=== PATIENT | female | born 1990 ===

== ENCOUNTER 2021-06-12 08:04 | Inpatient (IN) | payer OTHER ==
[~2021-06-12] VITALS: Ht 157.5 cm; Wt 138.1 kg
[2021-06-12 08:34] LABS: BASOPHILS PERCENT AUTO 0 % (0-2); EOSINOPHILS PERCENT AUTO 0 % (0-6); Hematocrit 27.7 % (33.0-51.0); Hemoglobin 8.3 g/dL (11.5-16.0); IMMATURE GRAN ABSOLUTE AUTO 0.02 K/mm3 (0.00-0.10); IMMATURE GRAN PERCENT AUTO 0 % (0-1); LYMPHOCYTES ABSOLUTE AUTO 0.45 K/mm3 (0.84-5.20); LYMPHOCYTES PERCENT AUTO 9 % (21-46); MONOCYTES ABSOLUTE AUTO 0.11 K/mm3 (0.16-1.47); MONOCYTES PERCENT AUTO 2 % (4-13); Mean Corpuscular HGB 21.3 pg (26.0-34.0); Mean Corpuscular Volume 71 fL (80-100); Mean Platelet Volume 9.3 fL (9.1-12.4); NEUTROPHILS ABSOLUTE AUTO 4.48 K/mm3 (1.96-9.15); NEUTROPHILS PERCENT AUTO 89 % (41-73); Platelet Count 220 K/mm3 (150-400); RDW Coefficient Variation 17.9 % (11.7-14.2); RDW Standard Deviation 46.5 fL (35.1-46.3); Red Blood Cell Count 3.89 M/mm3 (3.80-5.20); White Blood Cell Count 5.06 K/mm3 (4.00-11.30)
[2021-06-12 08:49] LABS: Alanine Aminotransfer (ALT/SGP 51 U/L (12-78); Albumin, Blood 2.8 g/dL (3.4-5.0); Albumin/Globulin Ratio 0.7 (0.8-1.8); Alk Phos 97 U/L (50-136); Anion Gap 7 mmol/L (6-16); Aspartate Aminotrans (AST/SGOT 69 U/L (12-37); Bilirubin, Total 0.3 mg/dL (0.1-1.0); Blood Urea Nitrogen 10 mg/dL (8-24); Bun/Creatinine Ratio 16.6 (12.0-20.0); CO2, Blood 27 mmol/L (21-32); Calcium, Blood 7.7 mg/dL (8.5-10.1); Chloride, Blood 105 mmol/L (98-108); Globulin, Blood 4.2 g/dL (2.2-4.0); Glomerular Filtration Rate >60 (60-); Glucose, Blood 128 mg/dL (70-99); Potassium, Blood 4.3 mmol/L (3.5-5.5); Sodium, Blood 139 mmol/L (136-145)
--- NOTE | 2021-06-12 16:20 | NUR ---
SHIFT SUMMARY ED ADMIT THIS AFTERNOON. PATIENT SETTLED INTO ROOM. DENIES PAIN AND NAUSEA. DYSPNEA WITH EXERTION. MAINTAINING OXYGEN SATURATION ABOVE 92% ON 2L/NC. UP INDEPENDENT IN ROOM. EATING AND DRINKING WELL. PLEASANT AND COOPERATIVE WITH CARE.
--- NOTE | 2021-06-13 04:09 | NUR ---
SHIFT SUMMARY PT IS A&O X4, ABLE TO INDEPENDENTLY AMBULATE TO THE BATHROOM. MAINTAINING SATS ABOVE 94% ON 3.5 LPM OXYGEN VIA NC. LUNG SOUNDS ARE DIMINISHED. PT WITH COUGH THAT IS PRODUCTIVE OF SCANT AMOUNT OF THICK, CLEAR MUCUS. ONCE NOTED WITH DRIED BLOOD. 20 GAUGE IV IN LEFT HAND. PT TEMP 100.3 - 101.6, TREATED WITH TYLENOL PRN, ICE PACKS TO ARM PITS, REMOVED BLANKETS, FAN IN ROOM. ENCOURAGED ADEQUATE HYDRATION. PT WILL CALL APPROPRIATELY, CALL LIGHT WITHIN REACH.
[2021-06-13 05:32] LABS: BASOPHILS PERCENT AUTO 0 % (0-2); EOSINOPHILS PERCENT AUTO 0 % (0-6); Hemoglobin 8.3 g/dL (11.5-16.0); Mean Corpuscular HGB 21.4 pg (26.0-34.0); Mean Corpuscular HGB Conc 29.6 g/dL (31.5-36.5); Mean Corpuscular Volume 72 fL (80-100); Mean Platelet Volume 9.4 fL (9.1-12.4); Platelet Count 262 K/mm3 (150-400); RDW Coefficient Variation 17.7 % (11.7-14.2); Red Blood Cell Count 3.88 M/mm3 (3.80-5.20); White Blood Cell Count 6.33 K/mm3 (4.00-11.30)
[2021-06-13 05:52] LABS: IMMATURE GRAN ABSOLUTE AUTO 0.04 K/mm3 (0.00-0.10); IMMATURE GRAN PERCENT AUTO 1 % (0-1); LYMPHOCYTES ABSOLUTE AUTO 0.73 K/mm3 (0.84-5.20); LYMPHOCYTES PERCENT AUTO 12 % (21-46); MONOCYTES ABSOLUTE AUTO 0.28 K/mm3 (0.16-1.47); MONOCYTES PERCENT AUTO 4 % (4-13); NEUTROPHILS ABSOLUTE AUTO 5.28 K/mm3 (1.96-9.15); NEUTROPHILS PERCENT AUTO 84 % (41-73)
[2021-06-13 06:01] LABS: Alanine Aminotransfer (ALT/SGP 46 U/L (12-78); Albumin, Blood 2.7 g/dL (3.4-5.0); Albumin/Globulin Ratio 0.6 (0.8-1.8); Alk Phos 93 U/L (50-136); Anion Gap 5 mmol/L (6-16); Aspartate Aminotrans (AST/SGOT 59 U/L (12-37); Bilirubin, Total 0.3 mg/dL (0.1-1.0); Blood Urea Nitrogen 12 mg/dL (8-24); Bun/Creatinine Ratio 23.5 (12.0-20.0); CO2, Blood 27 mmol/L (21-32); Calcium, Blood 8.2 mg/dL (8.5-10.1); Chloride, Blood 107 mmol/L (98-108); Creatinine, Blood 0.51 mg/dL (0.40-1.00); Ferritin, Serum 133 ng/mL (8-252); Globulin, Blood 4.6 g/dL (2.2-4.0); Glomerular Filtration Rate >60 (60-); Glucose, Blood 137 mg/dL (70-99); Iron Serum 20 ug/dL (50-170); Magnesium, Blood 2.6 mg/dL (1.6-2.4); Percent Saturation 6.1 % (15.0-50.0); Potassium, Blood 4.5 mmol/L (3.5-5.5); Sodium, Blood 139 mmol/L (136-145); Total Iron Binding Capacity 328 ug/dL (250-450); Total Protein, Blood 7.3 g/dL (6.4-8.2)
[2021-06-13 06:24] LABS: BAND PERCENT MAN 5 % (0-8); BASOPHILS ABSOLUTE MAN 0.06 K/mm3 (0.00-0.23); BASOPHILS PERCENT MAN 1 % (0-2); EOSINOPHILS PERCENT MAN 0 % (0-6); LYMPHOCYTES ABSOLUTE MAN 0.37 K/mm3 (0.84-5.20); LYMPHOCYTES PERCENT MAN 6 % (21-46); MONOCYTES PERCENT MAN 0 % (4-13); NEUTROPHILS ABSOLUTE MAN 5.88 K/mm3 (1.96-9.15); SEG NEUTROPHILS PERCENT MAN 88 % (41-73); TOTAL CELLS COUNTED 100
--- NOTE | 2021-06-13 18:51 | NUR ---
A+O, CALL light in reach, saline locked, 2L via nc for majority of shift but started coughing and needing more after dinner, currently at 3L but drops when she coughs, will continue to monitor and treat until share bsr with noc nurse
--- NOTE | 2021-06-13 22:09 | NUR ---
SPOKE WITH DR HERNÁNDEZ FOR THE PRIMARY RN AMEYA WHO IS IN THE ROOM WITH THE RESPIRATORY THERAPSIST AT THIS TIME. PT WAS DESATTING, THEY CURRENTLY HAVE THE PT ON AN AIRVO AT 60 L WITH A NONREBREATHER OVER THE TOP OF THAT, RT WOULD LIKE THE DR TO COME ASSESS THE PT FOR FURTHER INTERVENTION.
--- NOTE | 2021-06-13 23:55 | NUR ---
TRANSFERED PT OUT TO ICU UNDER PCU CARE PER MD REQUEST. PT TRANSFERED WITH RN AND RT AT SIDE, ALERT AND ORIENTED. PT C/O COUGH AND SOB, TREATED PER EMAR AND RT. REPORT GIVEN AND FAMILY UPDATED.
--- NOTE | 2021-06-14 04:59 | NUR ---
SHIFT SUMMARY PATIENT HAS SLEPT WELL THRU NIGHT. INITIALLY PLACED PT ON CPAP 100% FIO2, PER R.T. SWITCHED TO BIPAP DUE TO INCREASING COUGHING. HAS HAD VERY INFREQUENT COUGH AFTER RECEIVING CODEINE ON FLOOR. PT NOW DOWN TO 75% FIO2, MAINTAINING SPO2 ~ 95% EVEN WITH GETTING UP TO BEDSIDE COMMODE. NO C/O PAIN AFTER RECEIVING TORADOL. ASSESSMENT IS CHARTED. VSS. WILL CONTINUE TO MONITOR.
[2021-06-14 08:01] LABS: Hemoglobin 8.6 g/dL (11.5-16.0); Mean Corpuscular HGB 21.6 pg (26.0-34.0); Mean Corpuscular HGB Conc 29.7 g/dL (31.5-36.5); Mean Corpuscular Volume 73 fL (80-100); Mean Platelet Volume 9.4 fL (9.1-12.4); Platelet Count 308 K/mm3 (150-400); RDW Coefficient Variation 17.7 % (11.7-14.2); RDW Standard Deviation 47.2 fL (35.1-46.3); Red Blood Cell Count 3.98 M/mm3 (3.80-5.20); White Blood Cell Count 6.31 K/mm3 (4.00-11.30)
[2021-06-14 08:18] LABS: Anion Gap 3 mmol/L (6-16); Blood Urea Nitrogen 22 mg/dL (8-24); Bun/Creatinine Ratio 36.1 (12.0-20.0); CO2, Blood 30 mmol/L (21-32); Calcium, Blood 8.2 mg/dL (8.5-10.1); Chloride, Blood 107 mmol/L (98-108); Creatinine, Blood 0.61 mg/dL (0.40-1.00); Glomerular Filtration Rate >60 (60-); Glucose, Blood 126 mg/dL (70-99); Potassium, Blood 4.5 mmol/L (3.5-5.5); Sodium, Blood 140 mmol/L (136-145)
--- NOTE | 2021-06-14 09:00 | NUR ---
ASSUMED CARE REPORT RECIEVED. PT IS LAYING IN BED, AWAKE, ALERT AND ORIENTED UPON ENTERING ROOM. PT ON BIPAP 18/10, FIO2 85%. PT REQUESTING BREAK FROM BIPAP AT THIS TIME. PT PLACED ON AIRVO 60L, FIO2 100%. PT TOLERATED FOR ABOUT 5 MINUTES, THEN HAD A COUGHING EPISODE AND SPO2 DROPPED TO HIGH 60'S. PT PLACED BACK ON BIPAP AT THAT TIME. PT DENIES SOB AT REST. VITAL SIGNS STABLE WITH SPO2 >90% WHILE ON BIPAP. IV SALINE LOCKED. PT ABLE TO SHIFT SELF IN BED INDEPENDENTLY. WILL CONTINUE TO MONITOR.
--- NOTE | 2021-06-14 16:14 | NUR ---
ANXEITY/DESATTING PT FOUND TO BE SITTING UP AT THE FOOT OF THE BED, WITH BIPAP OFF, YELLING AND SPO2 MID 50'S. PT PLACED BACK ON BIPAP WITH 100% FIO2. PT RR 40'S. PT INCONTINENT OF URINE. PT CLEANED AND NEW LINENS PLACED. PT REMAINS ANXIOUS. DR DELATORRE NOTIFIED OF DESATURATION EPISODE. ORDERS RECIEVED TO START PRECEDEX AND CONSULT WET PROCESS MILLER HEAD. WILL CONTINUE TO MONITOR.
--- NOTE | 2021-06-14 18:18 | NUR ---
SHIFT SUMMARY PT REMAINS BIPAP DEPENDENT THROUGHOUT THE SHIFT. PT CAN TOLERATE VERY SHORT BREAKS FOR SIPS OF WATER ONLY, PT UNABLE TO TOLERATE BREAKS LONG ENOUGH FOR AIRVO. PT WITH CONTINUED ANXEITY THROUGHOUT THE SHIFT REQUIRING PRECEDEX TO BE STARTED THIS AFTERNOON. PRECEDEX CURRENTLY INFUSING AT 0.3 MCG/KG/MIN. PT HAS REMAINS ALERT AND ORIENTED. COMPLAINS OF SOB AND CHEST DISCOMFORT WITH COUGHING FITS. PT ABLE TO REPOSITION SELF IN BED INDEPENDENTLY. PT WITH ATTENDS IN PLACE. PT UP TO BSC MULTIPLE TIMES THIS SHIFT TO VOID WITH ONE INCONTINENT EPISODE. PT FAMILY VISITED PT AT OUTSIDE WINDOW THIS AFTERNOON. VITAL SIGNS STABLE AT THIS TIME. BIPAP SETTINGS 18/10, FIO2 75%. WILL CONTINUE TO MONITOR AND REPORT OFF TO ONCOMING RN.
--- NOTE | 2021-06-14 21:24 | NUR ---
BEGIN OF SHIFT, 19:45 REMOVED PT BIPAP TO AIRVO, 60l/100%, PT TOLERATED WELL FOR ABOUT 10 MINUTES BEFORE STARTING TO DESATURATE. EVEN WITH TALKING, ORAL CARE, PT WAS ABLE TO MAINTAIN SPO2 ~ 87 - 95%, LOW WITH ACTIVITY, HIGH AT REST. AFTER 10 MINUTES DESATURATED QUICKLY TO 84%, PLACED BACK ON BIPAP, UNFORTUNATELY WAS ONLY ABLE TO TURN FIO2 DOWN TO 80%, WAS AT 70% PRIOR. WILL GIVE PT TIME TO REST/RECOVER AND ATTEMPT TO DECREASE FURTHER. WILL CONTINUE TO MONITOR.
[2021-06-14 22:47] LABS: Source, Urine Catheter
[2021-06-14 22:52] LABS: Bilirubin, Urine Neg (Neg); Blood, Urine 1+ (Neg); Glucose Qualitative, Urine Neg (Neg); Ketones, Urine Neg (Neg); Leukocyte Esterase, Urine Neg (Neg); Nitrite, Urine Neg (Neg); Protein, Urine 2+ (Neg); Specific Gravity, Urine 1.015 (1.003-1.022); Urobilinogen, Urine 1+ (Normal)
[2021-06-14 23:03] LABS: Appearance, Urine Clear (Clear); Color, Urine Yellow (P-Yellow)
[2021-06-14 23:04] LABS: Bacteria Mod /hpf; Red Blood Cells, Urine 0-2 /hpf (0-2); Squamous Epithelial Cells Few /hpf (Few)
[2021-06-15 03:41] LABS: BASOPHILS PERCENT AUTO 0 % (0-2); EOSINOPHILS PERCENT AUTO 0 % (0-6); Hematocrit 26.4 % (33.0-51.0); IMMATURE GRAN ABSOLUTE AUTO 0.03 K/mm3 (0.00-0.10); IMMATURE GRAN PERCENT AUTO 1 % (0-1); LYMPHOCYTES PERCENT AUTO 14 % (21-46); MONOCYTES ABSOLUTE AUTO 0.37 K/mm3 (0.16-1.47); MONOCYTES PERCENT AUTO 6 % (4-13); Mean Corpuscular HGB 21.9 pg (26.0-34.0); Mean Corpuscular HGB Conc 30.3 g/dL (31.5-36.5); Mean Corpuscular Volume 72 fL (80-100); Mean Platelet Volume 9.4 fL (9.1-12.4); NEUTROPHILS ABSOLUTE AUTO 4.72 K/mm3 (1.96-9.15); NEUTROPHILS PERCENT AUTO 80 % (41-73); Platelet Count 297 K/mm3 (150-400); RDW Coefficient Variation 17.4 % (11.7-14.2); RDW Standard Deviation 46.1 fL (35.1-46.3); Red Blood Cell Count 3.66 M/mm3 (3.80-5.20); White Blood Cell Count 5.92 K/mm3 (4.00-11.30)
[2021-06-15 03:57] LABS: Anion Gap 4 mmol/L (6-16); Blood Urea Nitrogen 21 mg/dL (8-24); Bun/Creatinine Ratio 39.4 (12.0-20.0); CO2, Blood 30 mmol/L (21-32); Chloride, Blood 107 mmol/L (98-108); Creatinine, Blood 0.53 mg/dL (0.40-1.00); Glomerular Filtration Rate >60 (60-); Glucose, Blood 135 mg/dL (70-99); Potassium, Blood 4.6 mmol/L (3.5-5.5); Sodium, Blood 141 mmol/L (136-145)
--- NOTE | 2021-06-15 05:48 | NUR ---
SHIFT SUMMARY PATIENT HAS SLEPT WELL THRU NIGHT. AFTER EARLIER TAKING OFF BIPAP (SEE PRIOR NOTE) MAINTAINED FIO2 ~ 80%, EVENTUALLY DECREASED TO 70% PER R.T. AFTER ABOUT 2 HOURS. THIS MORNING HAVE GIVEN PT. BREAK FROM BIPAP, SWITCHED TOAIRVO 65l 100%FIO2 @ 05:40, PT TOLERATING WELL AT THIS TIME. LUNG SOUNDS HAVE STEADILY IMPROVED THRU NIGHT. ASSESSMENT IS CHARTED. VSS. WILL CONTINUE TO MONITOR.
--- NOTE | 2021-06-15 06:52 | NUR ---
UPDATE: 06:30 SWITCHED PT BACK TO BIPAP, SLOWLY DESATURATED TO 88%, LOW OF 70% SEEN WHILE QUICKLY SWITCHING PT BACK TO BIPAP, RECOVERED TO 88% WITHIN 30 SECONDS, 90% IN ABOUT 2 MINUTES, NOW AT 93% (06:50) WHILE PT ON 100% FIO2, RESTING COMFORTABLY.
--- NOTE | 2021-06-15 07:51 | NUR ---
ASSUMED CARE REPORT RECIEVED. PT IS LAYING IN BED RESTING QUIETLY. PT AWAKENS EASILY TO VERBAL STIMULI. PT IS ALERT AND ORIENTED AND ANSWERS QUESTIONS APPROPRIATELY. PT MINIMALLY SEDATED WITH PRECEDEX AT 0.4 MCG/KG/MIN. BIPAP IN PLACE 18/10, FIO2 100% INITIALLY, TITRATED DOWN TO 90%. VITAL SIGNS STABLE. ALFONSO IN PLACE WITH CLEAR YELLOW OUTPUT NOTED. WILL CONTINUE TO MONITOR.
[2021-06-15 10:22] LABS: PCO2 Arterial 41.4 mmHg (35-45); PO2 Arterial 58.7 mmHg (80-100); pH Blood Arterial 7.46 (7.35-7.45)
--- NOTE | 2021-06-15 11:53 | NUR ---
INCREASING O2 DEMAND PT UNABLE TO TAKE BREAKS FROM BIPAP OTHER THAN FOR ORAL CARE AND MEDS. PT BIPAP SETTINGS INCREASED AT THIS TIME 02/11, FIO2 100%. SPO2 88-92%. DR ANTOINE AWARE OF PT CONDITION. WILL CONTINUE TO MONITOR.
--- NOTE | 2021-06-15 17:44 | NUR ---
SHIFT SUMMARY NO ACUTE CHANGES THIS AFTERNOON. PT REMAINS ON BIPAP /, FIO2 90% AT THIS TIME. PT UNABLE TO TAKE ANY BREAKS FROM BIPAP EXCEPT FOR SIPS OF WATER AND ORAL CARE. PT DROWSEY, BUT AWAKENS EASILY TO VERBAL STIMULI. PT SEDATED WITH PRECEDEX AT 0.4 MCG/KG/HR. ALFONSO REMAINS IN PLACE WITH DARK YELLOW URINE OUTPUT THIS SHIFT. VITAL SIGNS STABLE. DR ANTOINE SPOKE WITH PT ABOUT POTENTIAL NEED FOR INTUBATION IF PT DECLINES FURTHER. PT IS AGREEABLE TO CONTINUE WITH BIPAP FOR LONG POSSIBLE PRIOR TO INTUBATION IF NECESSARY. PT FAMILY UPDATED VIA PHONE MULTIPLE TIMES THIS SHIFT. WILL CONTINUE TO MONITOR AND REPORT OFF TO ONCOMING RN.
--- NOTE | 2021-06-15 19:31 | NUR ---
REPORT RECEIVED-CARE ASSUMED- PT CALLING WEIGHER AND CHARGER LIGHT. VERY ANXIOUS-PRECEDEX @ 0.4MCG/KG/HR. PT ASKING TO BE "PUT OUT", EXPLAINED INTUBATION AND SEDATION TO PT-CONTINUE TO ASK-WILL REPORT TO MD. SATS 84-90%-CALLED RT-RT CHANGE BIPAP TO 100%. PRECEDEX INCREASED TO 0.5 TO HELP PT CALM. FULL ASSESSMENT DONE. BS: CLEAR DECREASED BILAT. STRONG SPASTIC COUGH NOTED. ASSESSMENT IN FLOWSHEET, CONTINUE ASSESSMENTS AND CARE.
--- NOTE | 2021-06-15 22:26 | NUR ---
UPDATE 1930-PT WITH DECREASED SATS, INCREASED AGGITATION, INCREASED WOB, INCREASED RR- PT ASKING TO BE SEDATED, UNDERSTANDS INTUBATION AND WANTS IT. NOTIFIED-DR. ANTOINE- SEE MD NOTE-PT INTUBATED AND SEDATED-SEE FLOWSEET FOR GTTS STARTED-SEE NURSING SHIFT ASSESSMENT FOR FULL ASSESSMENT POST [id number].
--- NOTE | 2021-06-15 23:50 | NUR ---
ASSESS CENTRAL LINE PLACED-SEE DR. ANTOINE'S NOTES.
[2021-06-16 00:23] LABS: PCO2 Arterial 51.4 mmHg (35-45); PO2 Arterial 159 mmHg (80-100); pH Blood Arterial 7.34 (7.35-7.45)
--- NOTE | 2021-06-16 02:14 | NUR ---
ASSESS PT REMAINS ON VET A/C V/C+22/370/20/80%. SEDATED & PARALYZED-SEE FLOWSHHET FOR GTTS, RATES & RATE CHANGES MADE T/O SHIFT. BS: REMAIN DECREASED-NO SECREATIONS-NO COUGH-NO GAG. ALFONSO IN PLACED-DRAINING CL/YELLOW. CONTINUE ASSESSMENTS AND CARE.
--- NOTE | 2021-06-16 04:37 | NUR ---
ASSESS CONTINUE VENT, SEDATION. NIMBEX @ 1 MCG/KG/MIN GTT. TO4 4 OUT OF 4 ON 6.
[2021-06-16 04:56] LABS: BASOPHILS ABSOLUTE AUTO 0.01 K/mm3 (0.00-0.23); BASOPHILS PERCENT AUTO 0 % (0-2); EOSINOPHILS PERCENT AUTO 0 % (0-6); Hematocrit 26.3 % (33.0-51.0); Hemoglobin 7.9 g/dL (11.5-16.0); IMMATURE GRAN ABSOLUTE AUTO 0.26 K/mm3 (0.00-0.10); IMMATURE GRAN PERCENT AUTO 3 % (0-1); LYMPHOCYTES ABSOLUTE AUTO 0.59 K/mm3 (0.84-5.20); LYMPHOCYTES PERCENT AUTO 6 % (21-46); MONOCYTES ABSOLUTE AUTO 0.52 K/mm3 (0.16-1.47); MONOCYTES PERCENT AUTO 5 % (4-13); Mean Corpuscular HGB 21.8 pg (26.0-34.0); Mean Corpuscular Volume 73 fL (80-100); Mean Platelet Volume 9.1 fL (9.1-12.4); NEUTROPHILS ABSOLUTE AUTO 8.24 K/mm3 (1.96-9.15); NEUTROPHILS PERCENT AUTO 86 % (41-73); NRBC ABSOLUTE 0.02 K/mm3 (0.00-0.02); NRBC Auto 0.2 /100 WBC (0.0-0.2); Platelet Count 340 K/mm3 (150-400); RDW Coefficient Variation 17.2 % (11.7-14.2); RDW Standard Deviation 45.5 fL (35.1-46.3); Red Blood Cell Count 3.63 M/mm3 (3.80-5.20); White Blood Cell Count 9.62 K/mm3 (4.00-11.30)
[2021-06-16 05:41] LABS: Albumin, Blood 2.2 g/dL (3.4-5.0); Anion Gap 6 mmol/L (6-16); Blood Urea Nitrogen 14 mg/dL (8-24); Bun/Creatinine Ratio 28.2 (12.0-20.0); CO2, Blood 27 mmol/L (21-32); Calcium, Blood 7.6 mg/dL (8.5-10.1); Chloride, Blood 107 mmol/L (98-108); Glomerular Filtration Rate >60 (60-); Glucose, Blood 245 mg/dL (70-99); Phosphorus, Blood 3.8 mg/dL (2.5-4.9); Potassium, Blood 4.6 mmol/L (3.5-5.5); Sodium, Blood 140 mmol/L (136-145)
--- NOTE | 2021-06-16 07:30 | NUR ---
ASSUMED CARE REPORT RECIEVED. PT IS INTUBATED, SEDATED AND PARALYZED. VENT SETTINGS AC/VC+ 22, TV 370, PEEP 20, FI02 80%. PT WITH NO ETT SECRETIONS NOTED. PT SEDATED WITH PROPOFOL, PRECEDEX, FENTANYL GTT, AND VERSED GTT. SEE FLOWSHEET FOR TITRATIONS. NIMBEX AT 1 MCG/KG/MIN. TRAIN OF FOUR IS 4/4. UNABLE TO ASSESS BIS SCORE DUE TO UNAVAILABILITY OF EQUIPMENT TO SET UP BIS MONITOR. CENTRAL LINE TO LEFT SUBCLAVIAN C/D/I. NS INFUSING AT 75 ML/HR. OGT IN PLACE TO LIS. ALFONSO IN PLACE WITH YELLOW OUTPUT NOTED. SBW RESTRAINTS IN PLACE. VITAL SIGNS STABLE. WILL CONTINUE TO MONITOR.
--- NOTE | 2021-06-16 17:41 | NUR ---
SHIFT SUMMARY NO ACUTE CHANGES THIS SHIFT. PT REMAINS INTUBATED AND SEDATED. PEEP AND FIO2 ABLE TO BE TITRATED DOWN THIS SHIFT. SETTINGS CURRENTLY AC 22, TV 370, PEEP 18, FIO2 55%. PT WITH NO ETT SECRETIONS THIS SHIFT. PT SEDATED WITH PROPOFOL, PRECEDEX, FENTANYL, AND VERSED. SEE FLOW SHEET TITRATIONS. PT PARALYZED WITH NIMBEX AT 1 MCG/KG/MIN. TRAIN OF FOUR HAS REMAINED 4/4. PT REMAINS WITHOUT BIS MONITOR DUE TO UNAVAILABILITY OF MONITORING EQUIPMENT. OGT IN PLACE WITH TF STARTED AT 10 ML/HR. CENTRAL LINE REMAINS C/D/I. ALFONSO REMAINS IN PLACE WITH CLEAR, DARK, YELLOW URINE OUTPUT NOTED. VITAL SIGNS HAVE REMAINED STABLE. SBW RESTRAINTS IN PLACE. WILL CONTINUE TO MONITOR AND REPORT OFF TO ONCOMING RN.
--- NOTE | 2021-06-16 19:19 | NUR ---
ASSUMED CARE OF PT, BEDSIDE REPORT RECEIVED, GTTS VERIFIED, SEE ICU FLOWSHEET. PT IS NOTED NONRESPONSIVE TO NOXIOUS STIMULI AT THIS TIME, UNABLE TO ASSESS BIS SCORE SECONDARY TO UNAVAILABILITY OF EQUIPMENT, TRAIN OF 4 IS 0/4 AT SETTING 6 HOWEVER 4/4 AT SETTING 7. PUPILS ARE EQUAL AND REACTIVE, TRACE SCLERAL EDEMA IS NOTED. VENT SETTINGS ARE NOTED AC/VC 22, 370, PEEP 18, FIO2 55%, PER OFFGOING RN PT WILL DESATURATE TO MID 80S WITH TURNS HOWEVER RECOVERS WITHIN 5 MINUTES, OXYGEN NEEDS HAVE BEEN TITRATED DOWN OVER THE COURSE OF DAY SHIFT AND PEEP DECREASED FROM 20 TO 18, WILL MONITOR. HRR, SINUS TO SINUS MARCELA ON MONITOR, PRESSURES HAVE BEEN STABLE THROUGHOUT DAY SHIFT, PULSES ARE FULL X 4 EXTREMITIES, NO EDEMA NOTED, BRISK CAP REFILL. HYPOACTIVE BOWEL TONES X 4 QUADRANTS, RESIDUAL 100 ML AT THIS TIME, PIVOT 1.5 AT GOAL OF 10 ML/HR WITH WATER 30 ML FLUSH EVERY [address]. [address] DRAINING CLEAR YELLOW URINE, CATH CARE DONE AND PT NOTED TO BE MENTRUATING, SERENA CARE DONE, SANITARY PAD CHANGED. WILL CONT TO MONITOR.
--- NOTE | 2021-06-16 22:35 | NUR ---
SPOKE WITH DR ANTOINE REGARDING PLANS FOR SEDATION VACATION, ORDERS FOR NO SEDATION VACATION THIS SHIFT RECEIVED. DISCUSSED SCLERAL EDEMA AND PARALYTIC, REQUESTED LACRILUBE, ORDERS RECEIVED.
--- NOTE | 2021-06-17 00:54 | NUR ---
PT OXYGEN REQUIREMENTS INCREASING WITH EACH REPOSITION, DISCUSSED CHANGES IN OXYGEN REQUIREMENTS FROM BEGINNING OF SHIFT TO THIS TIME WELL DESATURATIONS WITHOUT RECOVERY AT TIMES OF TURNS, BATH IS DEFERRED AT THIS TIME DUE TO PATIENT STATUS, WILL CONTINUE TO MONITOR AND ASSESS FOR PT INCREASED TOLERANCE TO POSITION CHANGES. WILL CONTINUE CATH/SERENA CARE WITH EACH TURN WELL SANITARY PAD CHANGES.
[2021-06-17 04:58] LABS: BASOPHILS ABSOLUTE AUTO 0.01 K/mm3 (0.00-0.23); BASOPHILS PERCENT AUTO 0 % (0-2); EOSINOPHILS ABSOLUTE AUTO 0.01 K/mm3 (0.00-0.68); EOSINOPHILS PERCENT AUTO 0 % (0-6); Hematocrit 24.5 % (33.0-51.0); Hemoglobin 7.3 g/dL (11.5-16.0); IMMATURE GRAN ABSOLUTE AUTO 0.31 K/mm3 (0.00-0.10); IMMATURE GRAN PERCENT AUTO 4 % (0-1); LYMPHOCYTES ABSOLUTE AUTO 0.91 K/mm3 (0.84-5.20); LYMPHOCYTES PERCENT AUTO 13 % (21-46); MONOCYTES ABSOLUTE AUTO 0.41 K/mm3 (0.16-1.47); MONOCYTES PERCENT AUTO 6 % (4-13); Mean Corpuscular HGB 21.9 pg (26.0-34.0); Mean Corpuscular HGB Conc 29.8 g/dL (31.5-36.5); Mean Corpuscular Volume 73 fL (80-100); Mean Platelet Volume 9.6 fL (9.1-12.4); NEUTROPHILS ABSOLUTE AUTO 5.61 K/mm3 (1.96-9.15); NEUTROPHILS PERCENT AUTO 77 % (41-73); NRBC ABSOLUTE 0.05 K/mm3 (0.00-0.02); NRBC Auto 0.7 /100 WBC (0.0-0.2); Platelet Count 358 K/mm3 (150-400); RDW Coefficient Variation 17.6 % (11.7-14.2); RDW Standard Deviation 47.1 fL (35.1-46.3); Red Blood Cell Count 3.34 M/mm3 (3.80-5.20); White Blood Cell Count 7.26 K/mm3 (4.00-11.30)
[2021-06-17 05:26] LABS: Albumin, Blood 2.1 g/dL (3.4-5.0); Anion Gap 4 mmol/L (6-16); Blood Urea Nitrogen 14 mg/dL (8-24); Bun/Creatinine Ratio 33.3 (12.0-20.0); CO2, Blood 29 mmol/L (21-32); Calcium, Blood 7.8 mg/dL (8.5-10.1); Chloride, Blood 110 mmol/L (98-108); Creatinine, Blood 0.42 mg/dL (0.40-1.00); Glomerular Filtration Rate >60 (60-); Glucose, Blood 127 mg/dL (70-99); Phosphorus, Blood 2.8 mg/dL (2.5-4.9); Potassium, Blood 3.9 mmol/L (3.5-5.5); Sodium, Blood 143 mmol/L (136-145)
--- NOTE | 2021-06-17 05:28 | NUR ---
PT REMAINS INTUBATED AND SEDATED. PROPOFOL AND PRECEDEX WERE INCREASED THIS SHIFT, SEE ICU FLOWSHEET FOR TITRATIONS. OXYGEN SATURATION DECREASES TO LOW TO MID 80S WITH MOVEMENT AND RECOVERED ONLY TO MID TO UPPER 80S, FIO2 WAS TITRATED UP FROM 55 TO 75% THIS SHIFT. WITH LAST TURN, PT WAS PREOXYGENATED WITH 10% FIO2 FOR 3 MINUTES PRIOR TO MOVEMENT AND FIO2 OF 100% WAS MAINTAINED THROUGHOUT REPOSITIONING, PT SATS DID DECREASE TO MID TO UPPER 80S DURING REPOSITIONING HOWEVER RECOVERED WITH RETURN OF HOB TO 30 DEGREES. SHE CONTINUES IN SINUS RHYTHM RATE LOW 50S TO 80S DEPENDING ON EXTERNAL STIMULI, PRESSURES MAINTAIN STABLE THROUGHOUT NOC. TUBE FEEDS CONTINUE AT 10 ML/HR RESIDUALS HAVE DECREASED THROUGHOUT NOC TO 0 WITH 0400 ASSESSMENT. FREQUENT SERENA AND CATH CARE DONE THIS SHIFT.
--- NOTE | 2021-06-17 09:06 | NUR ---
AM NOTE.... ASSUMED CARE OF PT AT 0700, PT IS INTUBATED AND SEDATED ON THE VENT AT AC/VC:22/370/18/75% WITH O2 SATS >90%. L/S DIM AND CLEAR T/O. PT'S RR IS 22 AT THIS TIME SHE IS SEDATED AND PARALYZED WITH NIMBEX AT 1, PROPOFOL AT 60, PRECEDEX AT 0.4MCG, FENTANYL AT 50MCG/HR AND VERSED AT 1MG. PT IS IN SR IN THE 60'S-70'S, BP STABLE AT THIS TIME, NO EDEMA NOTED ON ASSESSMENT. BT PRESENT AND HYPOACTIVE,ABD IS SOFT TO PALP. PT'S ALFONSO IS PATENT AND DRAINING TO GRAVITY. SCLEARAL EDEMA NOTED ON ASSESSMENT, LACRI-LUBE WAS USED TO HELP LUBRICATE THE EYES. WILL CONTINUE TO MONITOR.
--- NOTE | 2021-06-17 10:08 | NUR ---
PT UPDATE..,. PER DR. GARAY AND THE PT'S MOST RECENT CHEST XRAY THERE IS A PNEUMOMEDIASTINEUM PRESENT ON THE PT'S LEFT SIDE. CREPITUS IS NOTED TO THE LEFT SIDE OF THE PT'S NECK AND UPPER CHEST WALL. PER DR. GARAY SHE WANTS THE PEEP TURNED DOWN FROM 18 TO 10, RT JASMYNE NOTIFIED. RT MEDLEY WAS IN THE ER WITH ANOTHER PT GAVE THIS RN PERMISSION TO START TO TURN THE PEEP DOWN, THE PEEP WAS TURNED DOWN BY THIS RN FROM 18 TO 16, THE FIO2 WENT FROM 70% TO 100% TO KEEP THE PT'S O2 SATS >90%. WILL CONTINUE TO MONITOR.
--- NOTE | 2021-06-17 12:57 | NUR ---
PT UPDATE... AT APROX 1200 DR[address] GARAY AT THE BEDSIDE FOR ASSESSMENT, CHANGES WERE MADE TO THE PT'S VENT SETTINGS SHE WAS CHANGED TO AC/VC: 24/320/14/100%. PT'S O2 SATS WERE STABLE AFTER THIS CHANGE. AT 1257 THE PT'S O2 SATS DROPPED DOWN TO 81%, PT'S RR INCREASED TO 32-36, PT WAS MAXED OUT AT 100% THIS RN CALLED RT JASMYNE AND PER RT JASMYNE THE PEEP WAS INCREASED BACK UP TO 16 AFTER THIS CHANGE THE PT'S O2 SATS IMPROVED TO 95%.
--- NOTE | 2021-06-17 18:26 | NUR ---
SHIFT SUMMARY... THE PT'S CAME IN DURING VISITING HOURS. WHILE HE WAS HERE THE PT STARTED TO DESAT DOWN INTO THE 70'S, DR. GARAY NOTIFIED AND THE PT WAS PRONED, THIS HELPED THE PT'S O2 SATS IMPROVE UP TO 100%. PT'S WAS UPDATED ON THE PT'S CONDITION AND PLAN OF CARE. THE PT IS CURRENTLY ON 60 OF PROPOFOL, 100MCG OF FENTANYL PER HOUR, THE PT IS ALSO ON PRECEDEX AT 1.2. THE PT'S NIMBEX WAS TURNED DOWN TO 0.5 BUT THEN TURNED BACK UP TO 1 D/T BREATHING OVER THE VENT AND THE PRONING. PT'S OTHER VS HAVE BEEN STABLE T/O THE SHIFT. PT'S ALFONSO IS PATENT AND DRAINING CLEAR GREENISH URINE TO GRAVITY. PT HAS NOT HAD A BM THIS SHIFT. PT'S TOF IS 4/4 AT A SETTING OF 8, BIS MONITOR IS UNAVAILABLE AT THIS TIME. PT'S CURRENT VENT SETTINGS ARE AC/VC+: 24/320/18/100%. PT'S TUBE FEEDS WERE INCREASED THIS SHIFT TO 25MLS/HR, HOWEVER THE PT'S TUBE FEEDS WERE STOPPED WHEN THE PT WAS PRONED AND WILL BE RESTARTED WHEN THE PT IS TURNED BACK SUPINE. WILL CONTINUE TO MONITOR UNTIL REPORT IS GIVEN TO ONCOMING RN.
--- NOTE | 2021-06-17 19:15 | NUR ---
ASSUMED CARE OF PT, REPORT RECEIVED AT DOOR OF ROOM. PT IS NOW NOTED IN PRONE POSITION, SATS CURRENTLY 100%, VENT SETTINGS ARE AC/VC 24, 320, PEEP 18, FIO2 100%. LUNGS ARE CLEAR BUT DIM THROUGHOUT, HEART TONES ARE DISTANT, SLIGHT CREPITUS IS PALPABLE NEAR CLAVICLE ON LEFT, UNABLE TO PALPATE FURTHER DUE TO PT POSITION. ETT 7.5, 23 CM AT TEETH. NO EXTREMITY EDEMA IS NOTED AT THIS TIME, SKIN PWD WITH BRISK CAP REFILL, FULL PULSES. HYPOACTIVE BOWEL TONES CONTINUE, TUBE FEEDING IS NOTED ON HOLD, WILL CLARIFY WITH MD, RESIDUAL 90 ML AT THIS TIME. ALFONSO REMAINS IN PLACE DRAINING CLEAR GREEN URINE TO GRAVITY. GTTS ARE NOTED NIMBEX 1 MCG/KG/MIN, PRECEDEX AT 1 MCG/KG/HR, PROPOFOL AT 60 MCG/KG/MIN, FENTANYL 100 MCG/HR AND NS AT 75 ML/HR. PLAN IS TO UNPRONE PT AT 2300 PER OFFGOING RN, WILL CLARIFY WITH MD.
[2021-06-18 04:09] LABS: PCO2 Arterial 44.1 mmHg (35-45); PO2 Arterial 86.7 mmHg (80-100); pH Blood Arterial 7.44 (7.35-7.45)
[2021-06-18 04:57] LABS: BASOPHILS ABSOLUTE AUTO 0.01 K/mm3 (0.00-0.23); BASOPHILS PERCENT AUTO 0 % (0-2); Hematocrit 25.2 % (33.0-51.0); Hemoglobin 7.4 g/dL (11.5-16.0); LYMPHOCYTES ABSOLUTE AUTO 0.87 K/mm3 (0.84-5.20); LYMPHOCYTES PERCENT AUTO 9 % (21-46); MONOCYTES ABSOLUTE AUTO 0.29 K/mm3 (0.16-1.47); MONOCYTES PERCENT AUTO 3 % (4-13); Mean Corpuscular HGB 21.7 pg (26.0-34.0); Mean Corpuscular HGB Conc 29.4 g/dL (31.5-36.5); Mean Corpuscular Volume 74 fL (80-100); Mean Platelet Volume 9.5 fL (9.1-12.4); NRBC ABSOLUTE 0.09 K/mm3 (0.00-0.02); NRBC Auto 0.9 /100 WBC (0.0-0.2); Platelet Count 411 K/mm3 (150-400); RDW Coefficient Variation 17.6 % (11.7-14.2); RDW Standard Deviation 47.1 fL (35.1-46.3); Red Blood Cell Count 3.41 M/mm3 (3.80-5.20); White Blood Cell Count 9.69 K/mm3 (4.00-11.30)
[2021-06-18 04:59] LABS: EOSINOPHILS ABSOLUTE AUTO 0.01 K/mm3 (0.00-0.68); EOSINOPHILS PERCENT AUTO 0 % (0-6); IMMATURE GRAN ABSOLUTE AUTO 0.22 K/mm3 (0.00-0.10); IMMATURE GRAN PERCENT AUTO 2 % (0-1); NEUTROPHILS ABSOLUTE AUTO 8.29 K/mm3 (1.96-9.15); NEUTROPHILS PERCENT AUTO 86 % (41-73)
[2021-06-18 05:17] LABS: Anion Gap 3 mmol/L (6-16); Blood Urea Nitrogen 10 mg/dL (8-24); Bun/Creatinine Ratio 20.9 (12.0-20.0); CO2, Blood 30 mmol/L (21-32); Calcium, Blood 7.7 mg/dL (8.5-10.1); Chloride, Blood 109 mmol/L (98-108); Creatinine, Blood 0.48 mg/dL (0.40-1.00); Glomerular Filtration Rate >60 (60-); Glucose, Blood 110 mg/dL (70-99); Phosphorus, Blood 3.5 mg/dL (2.5-4.9); Potassium, Blood 3.8 mmol/L (3.5-5.5); Sodium, Blood 142 mmol/L (136-145); Triglycerides 205 mg/dL (30-140)
--- NOTE | 2021-06-18 05:56 | NUR ---
PT REMAINED PRONE UNTIL 0130 THIS AM, PEEP WAS TITRATED DOWN THROUGHOUT BEGINNING OF SHIFT TO 12 WHICH WAS MAINTAINING SATS 99-100% WITH FIO2 100% ON RETURNING PT TO SUPINE THIS AM, SATS DECREASED TO LOW 60S, BILAT BREATH SOUNDS AND TUBE MEASUREMENTS CONFIRMED, HOB RAISED, RT INCREASED PEEP BACK TO 18, THIS HAS SINCE BEEN SUCCUSSFULLY TITRATED DOWN TO 15 PER RT, ATTEMPT WAS MADE BY RT X 1 TO TIRATE PEEP BACK DOWN TO 12 WHICH WAS TOLERATED FOR APPROXIMATELY 30 MINUTES FOLLOWED BY SATS DECREASING TO MID 80S, PEEP RETURNED TO 15. VENT SETTINGS ARE OTHERWISE UNCHANGED, LUNG SOUNDS CONTINUE WITHOUT CHANGES, CREPITUS TO LEFT UPPER CHEST AND NECK IS UNCHANGED FROM FULL ASSESSMENT ON RETURN TO SUPINE POSITION THIS AM. TUBE FEEDS WERE INTITIALLY ON HOLD FOR PT POSITIONING HOWEVER ON DISCUSSION WITH DR GARAY, TUBE FEEDS WERE RESUMED AT 25 ML/HR WHILE PT WAS PRONE, RESIDUALS THROUGHOUT NOC HAVE MAINTAINED BETWEEN 90 AND 170 ML, NO BOWEL MOVEMENT THIS SHIFT, STOOL SOFTENER ADMIN VIA OG TUBE. ALFONSO REMAINS IN PLACE, URINE OUTPUT INCREASING, COLOR REMAINS GREEN. PROPOFOL, PRECEDEX, AND FENTANYL RATES UNCHANGED THIS SHIFT, PT WAS NOTED TO GRIMACE AND WEAKLY MOVE HEAD AWAY FROM ORAL CARE, RESPIRATORY RATE INCREASED TO MID TO UPPER 30S THIS AM HOWEVER PT APPEARED TO OTHERWISE BE RESTING QUIETLY WITH ACCEPTABLE SEDATION SCORE AT THAT TIME, NIMBEX GTT WAS INCREASED TO 1.5 MCG/KG/MIN, TRAIN OF 4 BOTH PRIOR TO TITRATION AND AFTER HAS REMAINED 4 FOR 4 AT SETTING OF 8, RESPIRATORY RATE IMPROVED TO 24.
--- NOTE | 2021-06-18 08:00 | NUR ---
ASSUMED CARE OF PT, REPORT RCV'D FROM ANDRIA DALE. PT INTUBATED, SEDATED, AND PARALYZED. VENT SETTINGS AC/VC+ 24/320/15/100%, NIMBEX @ 1.5 MCG/KG/MIN (TOF 1/4). PROPOFOL @ 60 MCG/KG/MIN, FENTANYL GTT @ 100 MCG/HR, PRECEDEX @ 1 MCG/KG/HR. BIS MONITOR NOT AVAILABLE AT THIS TIME. VITAL HIGH PROTEIN AT GOAL RATE 25 ML/HR WITH Q4 30 ML FLUSH. PLAN TO PRONE AT 1100 FOR 8 HOURS. VSS AT THIS TIME. SEE FULL SHIFT ASSESSMENT.
[2021-06-18 11:43] LABS: Vancomycin, Trough 10.9 ug/mL (5.0-10.0)
--- NOTE | 2021-06-18 12:00 | NUR ---
PT'S SATS DROPPED TO 86% SUSTAINED. PT PRONED WITH LITTLE IMPROVEMENT TO SATURATIONS. PEEP INCREASED FROM 15 TO 16. PLAN TO DECREASE NIMBEX TOLERATED. CURRENTLY NIMBEX AT 0.75 MCG/KG/MIN. PRECEDEX @1.4 MCG/KG/HR.
--- NOTE | 2021-06-18 14:53 | NUR ---
PT GOT BED AT [facility]. PT'S AND BEDSIDE, UPDATED WITH PT'S STATUS AND PLAN OF CARE/TRANSFER, REVIEWED WHAT [facility] IS WITH AND PT'S FAMILY ON PHONE. CALLED AND LEFT VOICEMAIL WITH PT'S MOTHER ALONG WITH ROOM NUMBER AND CONTACT INFORMATION FOR [facility].
--- NOTE | 2021-06-18 17:16 | NUR ---
PT TRANSFERRED VIA [facility] WITH [facility]. REPORT GIVEN TO ANDRIA RAMACHANDRAN AT [facility]. PT'S BOY GIVEN UPDATE AND CONTACT INFORMATION FOR HOSPITAL.
== END 2021-06-18 16:46 | disposition short-term general hospital (02) | DRG 208 ==
LOC: ER 08:04 → MEDS 09:38 → ICUE 09:38 → MEDS 12:37 → ICUE 06-13 23:31
PROVIDERS: Emergency Medicine; Family Medicine; Hospitalist; Internal Medicine; Internal Medicine Critical Care Medicine; Nurse Practitioner Acute Care; Pharmacist; ADMIT Family Medicine
PROC: 5A09357 Assistance with Respiratory Ventilation, Less than 24 Consecutive Hours, Continuous Positive Airway Pressure (ICD-10-PCS; principal; 2021-06-12)
PROC: XW033E5 Introduction of Remdesivir Anti-infective into Peripheral Vein, Percutaneous Approach, New Technology Group 5 (ICD-10-PCS; 2021-06-12)
PROC: 3E0333Z Introduction of Anti-inflammatory into Peripheral Vein, Percutaneous Approach (ICD-10-PCS; 2021-06-12)
PROC: 8E0ZXY6 Isolation (ICD-10-PCS; 2021-06-12)
PROC: 5A1945Z Respiratory Ventilation, 24-96 Consecutive Hours (ICD-10-PCS; 2021-06-15)
PROC: 0BH17EZ Insertion of Endotracheal Airway into Trachea, Via Natural or Artificial Opening (ICD-10-PCS; 2021-06-15)
PROC: 02HV33Z Insertion of Infusion Device into Superior Vena Cava, Percutaneous Approach (ICD-10-PCS; 2021-06-15)
PROC: B548ZZA Ultrasonography of Superior Vena Cava, Guidance (ICD-10-PCS; 2021-06-15)
DX: U07.1 COVID-19 (principal); J80 Acute respiratory distress syndrome; J12.82 Pneumonia due to coronavirus disease 2019; Z68.43 Body mass index [BMI] 50.0-59.9, adult; D50.9 Iron deficiency anemia, unspecified; E66.01 Morbid (severe) obesity due to excess calories; J98.2 Interstitial emphysema
CPT/HCPCS: 31500; 36415; 36556; 36600; 51702; 71045; 80048; 80053; 80069; 80202; 81001; 82728; 82803; 82947; 83540; 83550; 83735; 84145; 84478; 85025; 85027; 85379; 85651; 86140; 87070; 87077; 87086; 87147; 87186; 87205; 94002; 94003; 94640; 94660; 94760; 96365; 96366; 96375; 99285-25; A9270; C1751; C9113; J0330; J1100; J1650; J1885; J1940; J2250; J2704; J3010; J3370; J7030; J7050

== ENCOUNTER → 2021-08-09 | Outpatient (CLI) | payer OTHER ==
[2021-08-09 11:57] LABS: Anion Gap 10 mmol/L (6-16); Blood Urea Nitrogen 4 mg/dL (8-24); Bun/Creatinine Ratio 8.3 (12.0-20.0); CO2, Blood 27 mmol/L (21-32); Calcium, Blood 8.3 mg/dL (8.5-10.1); Chloride, Blood 108 mmol/L (98-108); Creatinine, Blood 0.48 mg/dL (0.40-1.00); Glomerular Filtration Rate >60 (60-); Glucose, Blood 89 mg/dL (70-99); Magnesium, Blood 1.2 mg/dL (1.6-2.4); Potassium, Blood 3.4 mmol/L (3.5-5.5); Sodium, Blood 145 mmol/L (136-145)
== END | disposition home or self-care (01) ==
LOC: LAB SHORT 11:47 → LAB 11:47
PROVIDERS: Physician Assistant Surgical
DX: Z09 Encounter for follow-up examination after completed treatment for conditions other than malignant neoplasm (principal); Z86.16 Personal history of COVID-19
CPT/HCPCS: 80048; 83735